=== PATIENT | female | born 1970 | race African-American/Black ===

== ENCOUNTER 2023-11-27 05:25 | Emergency (ER) | payer MEDICAID ==
[~2023-11-27] VITALS: Ht 162.6 cm; Wt 68.1 kg
[2023-11-27 05:58] LABS: COVID AG,FIA SOURCE NASAL SWAB
[2023-11-27 06:11] VITALS: TEMP 98.1
[2023-11-27 06:18] LABS: INFLUENZA TYPE A NEGATIVE FOR TYPE A (NEGATIVE); INFLUENZA TYPE B NEGATIVE FOR TYPE B (NEGATIVE); SARS-COV2 (COVID) ANTIGEN,FIA Negative (Negative)
[2023-11-27] MEDS: HYDROCODONE/ACETAMINOPHEN 5-325 MG TABLET PO ONE (06:25)
[2023-11-27] MEDS: KETOROLAC TROMETHAMINE 30 MG/ML VIAL IVP ONE (06:25)
[2023-11-27] MEDS: GuaiFENesin/D-METHORPHAN [SUGAR-FREE] 200-20MG/10 ML SYRUP UDCUP PO ONE (06:27)
[2023-11-27 06:31] LABS: BASOPHILS % (AUTO) 0.1 % (0.0-2.0); EOSINOPHILS % (AUTO) 0.4 % (1.0-6.0); HEMATOCRIT 33.2 % (36-46); LYMPHOCYTES # (AUTO) 0.7 K/uL (1.0-4.8); LYMPHOCYTES % (AUTO) 5.5 % (22.0-44.0); MEAN CORPUSCULAR HEMOGLOBIN 30.3 pg (26.0-34.0); MEAN CORPUSCULAR HGB CONC 33.3 G/dL (31.0-37.0); MEAN CORPUSCULAR VOLUME 91 fL (80-100); MONOCYTES # (AUTO) 1.3 K/uL (0.1-1.0); MONOCYTES % (AUTO) 10.1 % (2.0-9.0); NEUTROPHILS # (AUTO) 10.7 K/uL (1.8-7.7); NEUTROPHILS % (AUTO) 83.9 % (40.0-70.0); PLATELET COUNT (AUTO) 176 K/uL (150-450); RED BLOOD CELL COUNT(AUTO) 3.64 MIL/uL (4.00-5.20); RED CELL DISTRIBUTION WIDTH 13.8 % (11.5-14.5); WHITE BLOOD COUNT (AUTO) 12.8 K/uL (4.5-11.0)
[2023-11-27 06:49] LABS: TROPONIN I-HIGH SENSITIVITY 9 ng/L (<51)
[2023-11-27 06:55] LABS: CREATININE 1.49 mg/dL (0.60-1.30)
[2023-11-27 07:03] LABS: CALCIUM, TOTAL 8.9 mg/dL (8.8-10.5)
[2023-11-27 07:10] VITALS: BP 97/67; PULSE 90; RESP 18
[2023-11-27] MEDS ORDERED: HYDR-4723 PO (07:13)
[2023-11-27] MEDS ORDERED: GUAIFDM PO (07:13)
[2023-11-27] MEDS ORDERED: IBUP-1554 PO (07:13)
[2023-11-27] MEDS: POTASSIUM CHLORIDE 10% 40 MEQ/30 ML LIQUID UDCUP PO ONE (07:29)
== END 2023-11-27 07:51 | disposition home or self-care (01) ==
LOC: EMS 05:26
DX: J20.9 Acute bronchitis, unspecified (principal); E86.0 Dehydration; E87.6 Hypokalemia; I10 Essential (primary) hypertension; Z91.012 Allergy to eggs; Z91.018 Allergy to other foods; Z20.822 Contact with and (suspected) exposure to COVID-19
CPT/HCPCS: 99284; 96374; 87426; 80048; 84484; 85025; 87804; 36415; J1885

== ENCOUNTER 2024-03-10 14:57 | Emergency (ER) | payer MEDICAID, SELFPAY ==
[~2024-03-10] VITALS: Ht 162.6 cm; Wt 68.2 kg
[~2024-03-10 14:57] MED LIST: GUAIFDM PO; HYDR-4062 PO; IBUP-1554 PO
[2024-03-10 15:32] VITALS: TEMP 98
[2024-03-10] MEDS: HYDROCODONE/ACETAMINOPHEN 5-325 MG TABLET PO ONE (17:05)
[2024-03-10 18:09] LABS: BASOPHILS % (AUTO) 0.5 % (0.0-2.0); EOSINOPHILS % (AUTO) 2.6 % (1.0-6.0); HEMATOCRIT 36.5 % (36-46); HEMOGLOBIN 12.1 g/dL (12.0-16.0); LYMPHOCYTES # (AUTO) 1.8 K/uL (1.0-4.8); MEAN CORPUSCULAR HEMOGLOBIN 30.7 pg (26.0-34.0); MEAN CORPUSCULAR HGB CONC 33.2 G/dL (31.0-37.0); MEAN CORPUSCULAR VOLUME 93 fL (80-100); MONOCYTES # (AUTO) 0.4 K/uL (0.1-1.0); MONOCYTES % (AUTO) 6.9 % (2.0-9.0); PLATELET COUNT (AUTO) 199 K/uL (150-450); RED BLOOD CELL COUNT(AUTO) 3.94 MIL/uL (4.00-5.20); RED CELL DISTRIBUTION WIDTH 15.1 % (11.5-14.5); WHITE BLOOD COUNT (AUTO) 6.5 K/uL (4.5-11.0)
[2024-03-10 18:13] LABS: ANION GAP 10 mmol/L (8-16); CALCIUM, TOTAL 9.5 mg/dL (8.8-10.5); CARBON DIOXIDE 25 mmol/L (22-29); CHLORIDE 107 mmol/L (98-107); CREATININE 0.88 mg/dL (0.60-1.30); GLOMERULAR FILTR. RATE CALC > 60 mL/min (>60); GLUCOSE,RANDOM 90 mg/dL (70-110); POTASSIUM 3.7 mmol/L (3.5-5.1); SODIUM SERUM 142 mmol/L (136-145); UREA NITROGEN, BLOOD 22 mg/dL (7-18)
[2024-03-10 18:20] VITALS: BP 148/73; PULSE 81; RESP 18
[2024-03-10] MEDS ORDERED: GABA-1216 PO (18:40)
== END 2024-03-10 18:50 | disposition home or self-care (01) ==
LOC: EMS 15:00
DX: M79.18 Myalgia, other site (principal); I10 Essential (primary) hypertension; Z91.012 Allergy to eggs; Z91.018 Allergy to other foods
CPT/HCPCS: 80048; 85025; 93971; 99284

== ENCOUNTER 2025-01-28 21:07 | Emergency (ER) | payer MEDICAID ==
[~2025-01-28] VITALS: Ht 162.6 cm; Wt 59.1 kg
[~2025-01-28 21:07] MED LIST changes: +GABA-1216 PO; -GUAIFDM PO; -HYDR-4062 PO; -IBUP-1554 PO
[2025-01-28 21:10] VITALS: TEMP 98.4
[2025-01-29 02:53] LABS: COVID AG,FIA SOURCE NASAL SWAB
[2025-01-29 03:13] LABS: INFLUENZA TYPE A NEGATIVE FOR TYPE A (NEGATIVE); INFLUENZA TYPE B NEGATIVE FOR TYPE B (NEGATIVE)
[2025-01-29 03:14] LABS: SARS-COV2 (COVID) ANTIGEN,FIA Negative (Negative)
[2025-01-29] MEDS ORDERED: AZIT250T9 PO (03:53)
[2025-01-29] MEDS ORDERED: BENZ-227 PO (03:53)
[2025-01-29 04:21] VITALS: BP 160/91; PULSE 78; RESP 18; O2SAT 98
== END 2025-01-29 04:23 | disposition home or self-care (01) ==
LOC: EMS 21:07
DX: J18.0 Bronchopneumonia, unspecified organism (principal); I10 Essential (primary) hypertension; Z20.822 Contact with and (suspected) exposure to COVID-19
CPT/HCPCS: 71045; 87804; 99284

== ENCOUNTER 2025-02-01 19:18 | Emergency (ER) | payer MEDICAID ==
[~2025-02-01] VITALS: Ht 160 cm; Wt 63.6 kg
[~2025-02-01 19:18] MED LIST changes: +AZIT250T9 PO; +BENZ-227 PO
[2025-02-01 19:22] VITALS: BP 194/100; PULSE 100; RESP 18; TEMP 97.4; O2SAT 98
[2025-02-01 19:59] LABS: BASOPHILS % (AUTO) 0.6 % (0.0-2.0); HEMATOCRIT 37.5 % (36-46); HEMOGLOBIN 12.5 g/dL (12.0-16.0); LYMPHOCYTES # (AUTO) 2.7 K/uL (1.0-4.8); MEAN CORPUSCULAR HEMOGLOBIN 30.5 pg (26.0-34.0); MEAN CORPUSCULAR HGB CONC 33.2 G/dL (31.0-37.0); MEAN CORPUSCULAR VOLUME 92 fL (80-100); MONOCYTES # (AUTO) 0.6 K/uL (0.1-1.0); MONOCYTES % (AUTO) 6.5 % (2.0-9.0); NEUTROPHILS # (AUTO) 5.2 K/uL (1.8-7.7); NEUTROPHILS % (AUTO) 59.9 % (40.0-70.0); PLATELET COUNT (AUTO) 253 K/uL (150-450); RED BLOOD CELL COUNT(AUTO) 4.09 MIL/uL (4.00-5.20); RED CELL DISTRIBUTION WIDTH 14.8 % (11.5-14.5); WHITE BLOOD COUNT (AUTO) 8.7 K/uL (4.5-11.0)
[2025-02-01 20:08] LABS: ANION GAP 8 mmol/L (8-16); CALCIUM, TOTAL 9.3 mg/dL (8.8-10.5); CARBON DIOXIDE 27 mmol/L (22-29); CHLORIDE 107 mmol/L (98-107); CREATININE 0.74 mg/dL (0.60-1.30); GLOMERULAR FILTR. RATE CALC > 60 mL/min (>60); GLUCOSE,RANDOM 82 mg/dL (70-110); POTASSIUM 3.4 mmol/L (3.5-5.1); SODIUM SERUM 142 mmol/L (136-145); UREA NITROGEN, BLOOD 9 mg/dL (7-18)
[2025-02-01] MEDS: TraMADol HCL 50 MG TABLET PO ONE (21:09)
[2025-02-01] MEDS ORDERED: CYCL-448 PO (21:50)
== END 2025-02-02 00:32 | disposition home or self-care (01) ==
LOC: EMS 19:18
DX: M54.50 Low back pain, unspecified (principal); I10 Essential (primary) hypertension; Z91.018 Allergy to other foods; V89.2XXA Person injured in unspecified motor-vehicle accident, traffic, initial encounter; Y93.89 Activity, other specified; Y92.410 Unspecified street and highway as the place of occurrence of the external cause; Y99.8 Other external cause status
CPT/HCPCS: 71045; 72050; 72110; 72125; 80048; 85025; 99284; 36415-L1; 36415-TC

== ENCOUNTER 2025-03-28 16:04 | Emergency (ER) | payer MEDICAID ==
[~2025-03-28] VITALS: Ht 162.6 cm; Wt 65.9 kg
[~2025-03-28 16:04] MED LIST changes: -AZIT250T9 PO; +CYCL-448 PO
[2025-03-28 16:07] VITALS: BP 168/98; PULSE 79; RESP 18; TEMP 98.2; O2SAT 99
[2025-03-28] MEDS: CYCLOBENZAPRINE HCL 10 MG TABLET PO ONE (19:25)
[2025-03-28] MEDS: ACETAMINOPHEN/CODEINE 300-30 MG TABLET PO ONE (19:25)
[2025-03-28] MEDS: IBUPROFEN 600 MG TABLET PO ONE (19:25)
[2025-03-28] MEDS ORDERED: ACET-2080 PO (19:47)
[2025-03-28] MEDS ORDERED: CYCL-448 PO (19:47)
[2025-03-28] MEDS ORDERED: IBUP-1554 PO (19:47)
== END 2025-03-28 21:18 | disposition home or self-care (01) ==
LOC: EMS 16:04
DX: S46.812A Strain of other muscles, fascia and tendons at shoulder and upper arm level, left arm, initial encounter (principal); M54.2 Cervicalgia; I10 Essential (primary) hypertension; Z90.49 Acquired absence of other specified parts of digestive tract; Z91.012 Allergy to eggs; Z91.018 Allergy to other foods; X58.XXXA Exposure to other specified factors, initial encounter; Y93.89 Activity, other specified; Y92.89 Other specified places as the place of occurrence of the external cause; Y99.8 Other external cause status
CPT/HCPCS: 29240; 99284; Z7502; Z7610